=== PATIENT | female | born 1990 | race Two or more races ===

== ENCOUNTER 2019-08-23 15:15 | Inpatient (IN) | payer OTHER ==
[~2019-08-23] VITALS: Ht 175.3 cm; Wt 72.1 kg
[2019-09-07] MEDS ORDERED: PRENATAL TABLE1 EAC3 PO (12:46)
== END 2019-09-09 17:38 | disposition home or self-care (01) | DRG 807 ==
LOC: OB/GYN 09-01 15:15 → LDR 09-07 11:36 → OB/GYN 09-07 20:13
PROVIDERS: ADMIT Obstetrics & Gynecology
PROC: 10E0XZZ Delivery of Products of Conception, External Approach (ICD-10-PCS; principal; 2019-09-07)
PROC: 4A1HXFZ Monitoring of Products of Conception, Cardiac Rhythm, External Approach (ICD-10-PCS; 2019-09-07)
PROC: 3E033VJ Introduction of Other Hormone into Peripheral Vein, Percutaneous Approach (ICD-10-PCS; 2019-09-07)
DX: O80 Encounter for full-term uncomplicated delivery (principal); Z37.0 Single live birth; Z3A.39 39 weeks gestation of pregnancy